=== PATIENT | female | born 1950 | race Caucasian/White ===

== ENCOUNTER → 2016-12-03 | Outpatient (CLI) | payer OTHER | LOC: FIMAGING 08:53 | PROVIDERS: ATTEND Nurse Practitioner Adult Health | DX: Z12.31 Encounter for screening mammogram for malignant neoplasm of breast (principal); Z85.3 Personal history of malignant neoplasm of breast | CPT/HCPCS: G0202 ==

== ENCOUNTER → 2017-01-30 | Outpatient (CLI) | payer OTHER | LOC: FIMAGING 14:38 | PROVIDERS: ATTEND Nurse Practitioner Adult Health | DX: Z13.820 Encounter for screening for osteoporosis (principal); Z78.0 Asymptomatic menopausal state; Z96.642 Presence of left artificial hip joint ==

== ENCOUNTER → 2017-10-11 | Outpatient (CLI) | payer OTHER | LOC: BMCIMAGING 09:55 | PROVIDERS: ATTEND Nurse Practitioner Adult Health | DX: S79.911A Unspecified injury of right hip, initial encounter (principal) ==

== ENCOUNTER → 2018-02-12 | Outpatient (CLI) | payer OTHER | LOC: FIMAGING 10:31 | DX: Z12.31 Encounter for screening mammogram for malignant neoplasm of breast (principal); Z85.3 Personal history of malignant neoplasm of breast ==

== ENCOUNTER → 2019-02-14 | Outpatient (CLI) | payer OTHER | LOC: FIMAGING 09:53 ==